=== PATIENT | female | born 1975 | race Caucasian/White ===

== ENCOUNTER 2021-12-24 01:22 | Day surgery (SDC) | payer BC, SELFPAY ==
[2021-12-18 15:29] VITALS: BMI 23.4
--- NOTE | 2021-12-18 15:29 | PC.NURSE ---
Report to the Outpatient Waiting Room, entrance under the green pavilion located off [facility], at time __0615 on date __12/24/21___. OR Time: __08 . - You and your visitor will be asked a series of questions to screen for COVID 19 for your protection. - Only one visitor is allowed at this time. - The patient visitor is requested to leave or wait in car when not with patient. - A mask is required within the hospital. Patients may have clear liquids (water, carbonated beverages, clear teas, apple juice) until 3 hours prior to surgery with a maximum of 20 ounces. - No food from midnight until time of surgery - Infants may have breast milk until 4 hours before surgery, infant formula 6 hours prior to surgery. - Children will be allowed to drink immediately following surgery. If applicable, please bring a bottle or sippy cup to assist with drinking. Juice, water, soda, and popsicles are readily available. For infants on formula, please bring formula the day of surgery. Pacifiers are allowed. Take the following medications with a SIP of water the morning of surgery: __NONE Medications to discontinue per physician NONE Date to take last dose NONE Please no make-up, nail divehi, hairspray, perfume, deodorant, or body powder the day of surgery. No jewelry (including any body piercings) or valuables the day of surgery, leave them at home. Please take a shower or bath the night before, or the morning of, surgery with an antibacterial soap. Wear comfortable, loose fitting clothing. Children are encouraged to wear pajamas. - Jewelry must be removed prior to entering the operating room. Rings and piercings that are not removed may be cut off. - The hospital will not accept responsibility for valuables. - Please leave all valuables, including medications, at home the day of surgery. If you are going home after surgery, a licensed electric screw driver operator must drive you home. - NO public transportation without another adult. - We recommend that an adult stay with you for 24 hours following discharge. - We also recommend that you do not drive, make important decision, drink alcoholic beverages, or take any drugs that were not prescribed by your health care provider for at least 24 hours after your discharge time. For Pediatric surgeries, we recommend two adults accompany the child home (only one inside the building at this time). Follow any additional instructions given to you from your surgeon. If you or anyone in your household have experienced Covid symptoms in the past week, please notify your surgeon or the nurse liaison at the phone number below for possible testing. Telephone instructions given to _PATIENT and asked if any additional questions and then verbalized understanding. Patient advised to call surgeon office or pre surgery nurse liaison [phone] if any additional questions.
--- NOTE | 2021-12-19 14:34 | PM.HPGS ---
History of Present Illness History of Present Illness Consent: Risks, benefits, and alternatives have been discussed and questions answered. Patient agrees to proceed with procedure. Chief complaint: Rt Thyroid Nodule Narrative: America Acosta is a 46 year old female with a right thyroid nodule it is bothering her when she touches it or swallows Review of Systems Review of Systems: All systems reviewed & are unremarkable except as noted in HPI and below PMFSH Social History Social History Smoking packs per day: 1 Smoking cigarettes per day: 20.0 Years smoked: 36 Smoking pack-years: 36.00 Smoking status: Current every day smoker Tobacco type: cigarettes Alcohol intake: never Substance use: never Living arrangements: with family Comments family social medical surgical history all unremarkable Meds Home Medications and Allergies Home Medications Medication Instructions Recorded Confirmed Type No Home Medications 12/18/21 12/18/21 History Allergies Allergy/AdvReac Type Severity Reaction Status Date / Time No Known Allergies Allergy Verified 12/18/21 15:22 Exam Narrative: chest clear heart murmurs abdomen soft palpable thyroid nodule Assessment and Plan Additional Plan planned thyroidectomy
--- NOTE | 2021-12-19 14:36 | PM.HPGS ---
History of Present Illness History of Present Illness Consent: Risks, benefits, and alternatives have been discussed and questions answered. Patient agrees to proceed with procedure. Chief complaint: Rt Thyroid Nodule Narrative: America Acosta is a 46 year old female the right thyroid nodule it bothers her when she swallows or touches i Review of Systems Review of Systems: All systems reviewed & are unremarkable except as noted in HPI and below PMFSH Social History Social History Smoking packs per day: 1 Smoking cigarettes per day: 20.0 Years smoked: 36 Smoking pack-years: 36.00 Smoking status: Current every day smoker Tobacco type: cigarettes Alcohol intake: never Substance use: never Living arrangements: with family Comments social family medical and surgical history unremarkable Meds Home Medications and Allergies Home Medications Medication Instructions Recorded Confirmed Type No Home Medications 12/18/21 12/18/21 History Allergies Allergy/AdvReac Type Severity Reaction Status Date / Time No Known Allergies Allergy Verified 12/18/21 15:22 Exam Narrative: chest clear heart without murmurs abdomen soft right thyroid nodule pal Assessment and Plan Additional Plan right thyroidectomy explained the risks regarding of focal changes
[2021-12-24] VITALS (9 sets, daily range): BP systolic 99–152; BP diastolic 69–93; PULSE 54–71; RESP 15–20; TEMP 36.2–36.3; O2SAT 96–99
--- NOTE | 2021-12-24 06:00 | PM.IMHP ---
H&P: HPI History of Present Illness Date/Time: 12/24/21 06:00 [facility], [facility] Past Medical History Medical History Anxiety Smoker Surgical History Surgical History (Updated 12/24/21 @ 07:45 by Freddie Hinojosa MD) History of bladder surgery History of gastric bypass History of lumbar surgery Social History Social History Smoking packs per day: 1 Smoking cigarettes per day: 20.0 Years smoked: 36 Smoking pack-years: 36.00 Smoking status: Current every day smoker Tobacco type: cigarettes Alcohol intake: never Substance use: never Living arrangements: with family Meds Home Medications and Allergies Home Medications Medication Instructions Recorded Confirmed Type No Home Medications 12/18/21 12/24/21 History Allergies Allergy/AdvReac Type Severity Reaction Status Date / Time No Known Allergies Allergy Verified 12/24/21 06:17
--- NOTE | 2021-12-24 06:03 | WPDHPUPDATE1 ---
History and Physical Update Update Date/Time: 12/24/21 06:03 History and Physical has been reviewed, including an updated exam of the patient. There are NO changes in the patient's condition. Risks, benefits, and alternatives have been discussed and questions answered. Patient agrees to proceed with procedure.
[2021-12-24] MEDS: ACETAMINOPHEN 500 MG TABLET 1000 MG PO (06:49)
[2021-12-24] MEDS: LACTATED RINGERS 1,000 ML 30 ML IV CONT (06:49)
--- NOTE | 2021-12-24 07:08 | ECG_ITS ---
Measurements Intervals Guild Rate: 49 P: 69 IN: 157 QRS: 47 QRSD: 82 T: 47 QT: 479 QTc: 435 Interpretive Statements SINUS BRADYCARDIA ABNORMAL ECG Electronically Signed On 12-24-2021 7:55:39 CDT by Desmond Anderson D.O.
--- NOTE | 2021-12-24 07:43 | WPDANESEPPF ---
Anes - Initial Pre Proc Eval Procedure: Operation Date: 12/24/21 08:15 Proposed Procedures p Right Thyroidectomy - Christian Caro MD Date/Time: 12/24/21 07:43 Surgeon: Christian Caro MD Pre Op Diagnosis: Rt Thyroid Nodule Patient Data Age: 46 Gender: F Height: 1.6 m Weight: 62.3 kg Last Vital Signs Temp 36.3 C L 12/24/21 06:20 Pulse 59 L 12/24/21 06:20 Resp 16 12/24/21 06:20 BP 131/72 12/24/21 06:20 Pulse Ox 99 12/24/21 06:20 Allergies Allergy/AdvReac Type Severity Reaction Status Date / Time No Known Allergies Allergy Verified 12/24/21 06:17 Home Medications Medication Instructions Recorded Confirmed Type No Home Medications 12/18/21 12/24/21 History Patient hx anesthesia problems: none Family hx anesthesia problems: none Results Review: All pre-operative results and documents have been reviewed as part of the pre-operative evaluation. [facility] Past Medical History Medical History Anxiety Smoker Surgical History Surgical History (Updated 12/24/21 @ 07:45 by Freddie Hinojosa MD) History of bladder surgery History of gastric bypass History of lumbar surgery Social History Social History Smoking packs per day: 1 Smoking cigarettes per day: 20.0 Years smoked: 36 Smoking pack-years: 36.00 Smoking status: Current every day smoker Tobacco type: cigarettes Alcohol intake: never Substance use: never Living arrangements: with family Anes - Eval Final PreProcedure Day of Procedure 12/24/21 07:43 Patient weight: normal Heart: regular rate and rhythm Lungs: clear to auscultation Airway: Mallampati scale class II Neurological: alert and oriented Last oral intake: >/= 8 hours ASA classification: II Emergent: no Anesthetic plan: proceed Results Review: All pre-operative results and documents have been reviewed as part of the pre-operative evaluation. Informed Consent: The patient's anesthetic plan and its attendant risks and benefits were discussed with the patient/family/POA. Questions were solicited and answers provided to the satisfaction of the patient/family/POA.
[2021-12-24] MEDS: ceFAZolin 2 GM/D5W 50 ML 2 GM/50 ML BAG IVPB (08:08)
[2021-12-24] MEDS: LIDO 1%/EPINEPHRINE/PF 1:200,000 30 ML VIAL 10 ML XX (08:23)
--- NOTE | 2021-12-24 08:56 | W.PM.PROC2 ---
Procedure Note - Detailed Date of Procedure 12/24/21 Pre-op Diagnosis Rt Thyroid Nodule Post-op Diagnosis Same Procedure Performed Right thyroidectomy Surgeon Christian Caor MD Anesthesia General Description of Procedure Patient prepped and draped usual fashion duction general anesthesia a low collar incision was made and subplatysmal flaps elevated midline strap muscle divided the [] thyroid was identified a large cyst was identified in the [] thyroid lobe with the the ligature of the superior mid middle middle pedicles were removed the isthmus was divided the parathyroid was identified and left undisturbed the recurrent laryngeal nerve was identified hematuria placed for hemostasis and closed in layers with chromic and Monocryl Drains No Packing No Pathology Yes Complications No immediate complications Condition Stable Disposition PACU
[2021-12-24] MEDS: oxyCODONE HCL (*CRX) 5 MG TAB IR PO (10:08)
[2021-12-24] MEDS: fentaNYL CITRATE INJ (*CRX) 100 MCG/2 ML VIAL 25 MCG IV PUSH ×6 (10:25→10:58)
== END 2021-12-24 11:30 | disposition home or self-care (01) ==
PROVIDERS: Visit Provider Otolaryngology
PROC: (CPT 60220; principal; 2021-12-24 08:15)
DX: E04.2 Nontoxic multinodular goiter (principal); F17.210 Nicotine dependence, cigarettes, uncomplicated
CPT/HCPCS: 60220; 88305; 88307; 88331; 93005; A9270; J0330; J0690; J1100; J2250; J2405; J2704; J3010; J7120